=== PATIENT | female | born 1935 | race Caucasian/White ===

== ENCOUNTER 2016-07-25 02:31 | Emergency (ER) | payer MEDICARE, OTHER ==
[2016-07-25 02:37] VITALS: BP 139/51
[2016-07-25] MEDS ORDERED: Meclizine 12.5 MG Tab PO ONE (02:40)
--- NOTE | 2016-07-25 02:45 | EDM.PDOC ---
ED HPI GENERAL MEDICAL PROBLEM - General Chief Complaint: Cardiovascular Problem Stated Complaint: DIZZY Time Seen by Provider: 07/25/16 02:41 Source of Information: Reports: Patient, Family History Limitations: Reports: No Limitations - History of Present Illness INITIAL COMMENTS - FREE TEXT/NARRATIVE: states woke up to go to bathroom felt light head & dizzy without CP/SOB/BEDOYA/ PARESTHESIA-PAERSIS. worse when moves but seems better now. - Related Data Allergies Allergy/AdvReac Type Severity Reaction Status Date / Time Penicillins Allergy Nausea and Verified 07/25/16 02:37 Vomiting Home Meds: Home Meds Calcitriol [Rocaltrol] 0.25 mcg PO DAILY 07/25/16 [History] Furosemide [Lasix] 20 mg PO DAILY 07/25/16 [History] Levothyroxine 75 mcg PO ACBREAKFAST 07/25/16 [History] Losartan [Cozaar] 50 mg PO DAILY 07/25/16 [History] NIFEdipine [Nifedipine ER] 90 mg PO DAILY 07/25/16 [History] Omeprazole 20 mg PO DAILY 07/25/16 [History] ED ROS GENERAL - Review of Systems Review Of Systems: ROS reveals no pertinent complaints other than HPI. ED EXAM, GENERAL - Physical Exam Exam: See Below Exam Limited By: No Limitations General Appearance: Alert, WD/WN, Mild Distress, Other (dixxiness) Eye Exam: Bilateral Eye: PERRL (pupils ess ER @ 4mm) Ears: Hearing Grossly Normal Throat/Mouth: Normal Voice, No Airway Compromise Head: Atraumatic Neck: Non-Tender, Full Range of Motion Respiratory/Chest: No Respiratory Distress Cardiovascular: Regular Rate, Rhythm GI/Abdominal: Soft, Non-Tender Neurological: Alert, Oriented, Normal Cognition, No Motor/Sensory Deficits, Other (gait limited to dizziness) Psychiatric: Flat Affect Skin Exam: Warm, Dry Lymphatic: No Adenopathy Course - Vital Signs Last Recorded V/S: Last Vital Signs Temp 36.1 C 07/25/16 02:34 Pulse 63 07/25/16 02:34 Resp 18 07/25/16 02:34 BP 139/51 L 07/25/16 02:34 Pulse Ox 94 L 07/25/16 02:34 - Orders/Labs/Meds Orders: Active Orders 24 hr Category Date Time Status EKG Documentation Completion [RC] STAT Care 07/25/16 02:41 Active Labs: Laboratory Tests 07/25/16 07/25/16 Range/Units 02:40 02:40 WBC 7.5 (5.0-10.0) 10^3/uL RBC 4.15 L (4.2-5.4) 10^6/uL Hgb 12.7 (12.0-16.0) g/dL Hct 38.9 (37.0-47.0) % MCV 93.7 (80-100) fL MCH 30.6 (27.0-34.0) pg MCHC 32.6 L (33.0-35.0) g/dL Plt Count 259 (150-450) 10^3/uL Neut % (Auto) 45.3 (42.2-75.2) % Lymph % (Auto) 38.6 (20.5-50.1) % Lake % (Auto) 10.9 H (2-8) % Eos % (Auto) 4.5 H (1.0-3.0) % Baso % (Auto) 0.7 (0.0-1.0) % Sodium 143 (135-145) mmol/L Potassium 3.6 (3.6-5.0) mmol/L Chloride 108 (101-111) mmol/L Carbon Dioxide 24.0 (21.0-31.0) mmol/L Anion Gap 14.6 BUN 31 H (7-18) mg/dL Creatinine 1.6 H (0.6-1.3) mg/dL Est Cr Clr Drug Dosing 24.81 mL/min Estimated GFR (MDRD) 31 BUN/Creatinine Ratio 19.37 Glucose 128 H (74-105) mg/dL Calcium 9.8 (8.4-10.2) mg/dl Total Bilirubin 0.6 (0.2-1.0) mg/dL AST 29 (10-42) IU/L ALT 29 (10-60) IU/L Alkaline Phosphatase 103 (42-121) IU/L Troponin I < 0.02 (0.00-0.02) ng/ml Total Protein 6.5 L (6.7-8.2) g/dl Albumin 3.6 (3.2-5.5) g/dl Globulin 2.9 Albumin/Globulin Ratio 1.24 Meds: Medications Discontinued Medications Generic Name Dose Route Start Last Admin Trade Name Freq PRN Reason Stop Dose Admin Meclizine HCl 12.5 mg 07/25/16 02:40 07/25/16 02:49 Antivert PO 07/25/16 02:41 12.5 mg ONETIME ONE Administration - Re-Assessments/Exams Free Text/Narrative Re-Assessment/Exam: 07/25/16 04:12 s/p antivert=much better. Departure - Departure Time of Disposition: 04:13 Disposition: Home, Self-Care 01 Condition: Good Clinical Impression: Vertigo Instructions: Vertigo, [id number] Forms: ED Department Discharge Additional Instructions: 1) rest and avoid vigorous activities next 24 hours 2) try ANTIVERT or MECLIZINE from [facility] 3) return if there is any change or concern - My Orders Last 24 Hours: My Active Orders 07/25/16 02:41 EKG Documentation Completion [RC] STAT - Assessment/Plan Last 24 Hours: My Active Orders 07/25/16 02:41 EKG Documentation Completion [RC] STAT
[2016-07-25 03:07] LABS: CHLORIDE,CL 108 mmol/L (101-111); SODIUM,NA 143 mmol/L (135-145)
--- NOTE | 2016-07-25 21:48 | EKG ---
07/25/2016 - ROCKY LUCERO - Twelve-lead EKG shows normal sinus rhythm with atrial premature complexes. No significant ST elevation or ST depression noted on this 12-lead EKG. Nonspecific ST-T wave changes noted on lead 1 and 2. [facility] /[id number]
== END 2016-07-25 04:19 | disposition home or self-care (01) ==
LOC: DL.ED 02:31
DX: R42 Dizziness and giddiness (principal); Z88.0 Allergy status to penicillin; Z79.899 Other long term (current) drug therapy
CPT/HCPCS: 36415; 80053; 84484; 85025; 93005; 93010; 99282; 99284; A9270